=== PATIENT | female | born 1960 | race Caucasian/White ===

== ENCOUNTER → 2018-06-18 10:19 | Outpatient (CLI) | payer BC | END | disposition home or self-care (01) | LOC: D.CT 10:00 | DX: R10.9 Unspecified abdominal pain (principal) ==

== ENCOUNTER → 2018-07-30 09:01 | Outpatient (CLI) | payer BC | END | disposition home or self-care (01) | LOC: D.US 08:00 | DX: N63.24 Unspecified lump in the left breast, lower inner quadrant (principal) ==

== ENCOUNTER → 2019-02-25 10:56 | Outpatient (CLI) | payer BC | END | disposition home or self-care (01) | LOC: D.US 01-21 09:00 | PROVIDERS: ATTEND Nurse Practitioner | DX: N63.23 Unspecified lump in the left breast, lower outer quadrant (principal) ==

== ENCOUNTER → 2019-03-08 12:53 | Outpatient (CLI) | payer BC | END | disposition home or self-care (01) | LOC: D.RT 12:53 | PROVIDERS: ATTEND Family Medicine | DX: R05 Cough (principal) ==

== ENCOUNTER → 2019-06-13 10:21 | Outpatient (CLI) | payer BC ==
[2019-06-13 10:57] LABS: BASOPHILS 0.1 % (0-2); EOSINOPHILS 0.4 % (0-7); HEMATOCRIT 43.3 % (36.0-48.0); HEMOGLOBIN 14.6 g/dL (12-16); IMMATURE GRANULOCYTES 1.2 % (0-5); LYMPHOCYTES 14.1 % (15-50); MCH 28.7 pg (26.0-34.0); MCHC 33.7 g/dL (31.0-37.0); MCV 85.2 fL (80.0-100.0); MEAN PLATELET VOLUME 10.3 fL (7.4-10.4); MONOCYTES 6.9 % (2-11); NEUTROPHILS 77.3 % (40-80); PLATELET COUNT 265 10x3/uL (130-400); RBC 5.08 10x6/uL (4.00-5.40); RDW 13.2 % (11.5-14.5); WBC 13.7 10x3/uL (4.8-10.8)
[2019-06-14 07:13] LABS: IMMUNOGLOBULIN A 232 mg/dL (87-352); IMMUNOGLOBULIN G 770 mg/dL (700-1600); IMMUNOGLOBULIN M 61 mg/dL (26-217)
[2019-06-17 12:09] LABS: IMMUNOGLOBULIN E 32 IU/mL (6-495)
== END | disposition home or self-care (01) ==
LOC: D.CT 10:21
PROVIDERS: ATTEND Internal Medicine Pulmonary Disease
DX: R91.8 Other nonspecific abnormal finding of lung field (principal); J45.909 Unspecified asthma, uncomplicated

== ENCOUNTER → 2019-12-27 11:30 | Outpatient (CLI) | payer BC | END | disposition home or self-care (01) | LOC: D.CT 11:30 | PROVIDERS: ATTEND Internal Medicine Pulmonary Disease | DX: R91.8 Other nonspecific abnormal finding of lung field (principal) ==